=== PATIENT | female | born 1970 | race Caucasian/White ===

== ENCOUNTER 2017-05-15 09:24 | Emergency (ER) | payer SELFPAY ==
[~2017-05-15] VITALS: Ht 165.1 cm; Wt 95.5 kg
[2017-05-15 09:26] VITALS: BP 127/76
== END 2017-05-15 10:45 | disposition left against medical advice (07) ==
LOC: EMS 09:26
DX: R42 Dizziness and giddiness (principal); Z53.21 Procedure and treatment not carried out due to patient leaving prior to being seen by health care provider